=== PATIENT | female | born 2000 | race Caucasian/White ===

== ENCOUNTER 2025-05-04 07:04 | Outpatient (CLI) | payer OTHER, SELFPAY | END 2025-05-04 07:05 | disposition home or self-care (01) | PROVIDERS: Visit Provider Obstetrics & Gynecology | DX: O10.912 Unspecified pre-existing hypertension complicating pregnancy, second trimester (principal); O99.212 Obesity complicating pregnancy, second trimester; Z3A.20 20 weeks gestation of pregnancy | CPT/HCPCS: 76811 ==

== ENCOUNTER 2025-06-29 09:00 | Outpatient (CLI) | payer OTHER, SELFPAY ==
--- NOTE | 2025-06-29 09:15 | CRLHL7_ITS ---
For Patients: As a result of the Century Cures Act, medical imaging exams and procedure reports are released immediately into your electronic medical record. You may view this report before your referring provider. If you have questions, please contact your health care provider. OB ULTRASOUND FOLLOW-UP/LIMITED, 06/29/2025 CLINICAL HISTORY: Obesity complicating . COMPARISON: 05/04/2025. TECHNIQUE: Real time lester scale imaging of the fetus was performed. Transabdominal imaging performed. FINDINGS: ANI by US: 09/21/2025. GA: 28 weeks 0 days. Gestation: Single. Cervix: Not visualized. Positioning: Vertex. Amniotic Fluid: 7.7 cm SDP. Placenta: Technique: TA. Placenta Position: Anterior. Dopplers: Heart Rate: 134 bpm. BIOMETRY BPD: 7.2 cm, 29 weeks 0 days. 70% HC: 26.2 cm, 28 weeks 4 days. 36% AC: 24.1 cm, 28 weeks 3 days. 55% FL: 5.1 cm, 27 weeks 3 days. 18% FL/AC Ratio: 21.18% HC/AC Ratio: 1.09. EFW: 1175 grams, 2 lb 9 oz. Age by this US: 28 weeks 3 days. ANI by this US: 09/18/2025. Percentile by ANI: 41% IMPRESSION: 1. Sonographic gestational age 28 weeks 3 days and sonographic due date 09/18/2025. Good correlation with dates. Normal interval growth. 2. Estimated weight 41st percentile. Abdominal circumference 55th percentile. Shashank Gardiner M.D. Diagnostic Radiologist [email or web address] Transcribed: 10:46 am DW/Dictated by: Shashank Gardiner MD @ 06/29/2025 10:11:00 AM (Electronically Signed)
== END 2025-06-29 09:01 | disposition home or self-care (01) ==
LOC: US 09:01
PROVIDERS: Visit Provider Obstetrics & Gynecology
DX: O99.213 Obesity complicating pregnancy, third trimester (principal); Z3A.28 28 weeks gestation of pregnancy
CPT/HCPCS: 76816

== ENCOUNTER 2025-06-29 10:16 | Outpatient (CLI) | payer OTHER, SELFPAY | END 2025-06-29 10:17 | disposition home or self-care (01) | LOC: NFLDREF 10:17 | PROVIDERS: Visit Provider Obstetrics & Gynecology | DX: Z34.03 Encounter for supervision of normal first pregnancy, third trimester (principal); R74.8 Abnormal levels of other serum enzymes | CPT/HCPCS: 84450; 84460; 86592 ==

== ENCOUNTER 2025-07-28 07:11 | Outpatient (CLI) | payer OTHER, SELFPAY ==
--- NOTE | 2025-07-28 07:15 | CRLHL7_ITS ---
For Patients: As a result of the Cures Act, medical imaging exams and procedure reports are released immediately into your electronic medical record. You may view this report before your referring provider. If you have questions, please contact your health care provider. OB ULTRASOUND ANI by US: 09/21/2025. GA: 32 w, 1 d. Single. Comparison: 06/29/2025, 05/04/2025. INDICATION: Obesity. TECHNIQUE: Real time lester scale imaging of the fetus was performed. Transabdominal imaging performed. CERVIX: Not visualized. POSITIONING: Transverse, maternal left. AMNIOTIC FLUID: 5.6 cm SDP (N: greater than 2 x 1 cm) BIOPHYSICAL PROFILE: Gross body movements: 2. tone: 2. Respiratory activity: 2. Amniotic fluid: 2. SDP (N: greater than 2 x 1 cm). Total score: 8. PLACENTA: Technique: Transabdominal. PLACENTA POSITION: Anterior. DOPPLER: heart rate: 141 bpm. BIOMETRY: BPD: 8.1 cm. 32 w, 3 d, 52%. HC: 30 cm. 33 w, 2 d, 42%. AC: 27 cm. 31 w, 1 d, 21%. FL: 6 cm. 31 w, 1 d, 15%. FL/AC ratio: 22.15%. HC/AC ratio: 1.11. EFW: 1773 g. Weight: 3 lbs, 15 oz. age by this US: 32 w, 0 d. ANI by this US: 09/22/2025. Percentile by ANI: 20%. IMPRESSION: 1. Normal biophysical profile score 8/8. 2. Sonographic gestational age 32 weeks 0 days with sonographic due date 09/22/2025. Good correlation with dates. Normal interval growth. 3. Estimated weight 20th percentile. Abdominal circumference 21st percentile. Shashank Gardiner M.D. Diagnostic Radiologist [email or web address] DONNA/quinton alcantara/Dictated by: Shashank Gardiner MD @ 07/28/2025 1:00:00 PM (Electronically Signed)
== END 2025-07-28 07:12 | disposition home or self-care (01) ==
LOC: US 07:12
PROVIDERS: Visit Provider Obstetrics & Gynecology
DX: O99.213 Obesity complicating pregnancy, third trimester (principal); Z3A.32 32 weeks gestation of pregnancy
CPT/HCPCS: 76816; 76819

== ENCOUNTER 2025-07-28 08:10 | Outpatient (CLI) | payer OTHER, SELFPAY | END 2025-07-28 08:11 | disposition home or self-care (01) | PROVIDERS: Visit Provider Obstetrics & Gynecology | DX: O10.913 Unspecified pre-existing hypertension complicating pregnancy, third trimester (principal); O24.419 Gestational diabetes mellitus in pregnancy, unspecified control; Z3A.32 32 weeks gestation of pregnancy | CPT/HCPCS: 82565; 82570; 84156; 84450; 84460 ==

== ENCOUNTER 2025-08-01 07:15 | Outpatient (CLI) | payer OTHER, SELFPAY | END 2025-08-01 07:16 | disposition home or self-care (01) | LOC: NFLDREF 08-02 06:10 | PROVIDERS: Visit Provider Obstetrics & Gynecology | DX: R74.8 Abnormal levels of other serum enzymes (principal); O10.913 Unspecified pre-existing hypertension complicating pregnancy, third trimester | CPT/HCPCS: 82570; 84156 ==

== ENCOUNTER 2025-08-02 14:01 | Outpatient (CLI) | payer OTHER, SELFPAY | END 2025-08-02 14:02 | disposition home or self-care (01) | LOC: NFLDREF 08-04 08:54 | PROVIDERS: Visit Provider Obstetrics & Gynecology | DX: R74.8 Abnormal levels of other serum enzymes (principal); O10.913 Unspecified pre-existing hypertension complicating pregnancy, third trimester | CPT/HCPCS: 82565; 84450; 84460 ==

== ENCOUNTER 2025-08-08 12:06 | Outpatient (CLI) | payer OTHER, SELFPAY ==
--- NOTE | 2025-08-08 12:15 | CRLHL7_ITS ---
For Patients: As a result of the Century Cures Act, medical imaging exams and procedure reports are released immediately into your electronic medical record. You may view this report before your referring provider. If you have questions, please contact your health care provider. ANI by US: 09/21/2025. GA: 33w, 5d. Single. COMPARISONS: 07/26/2025, 06/29/2025, 05/04/2025. INDICATION: Obesity. CERVIX: Not visualized. POSITIONING: Transverse right. AMNIOTIC FLUID: 6.9 cm SDP. BIOPHYSICAL PROFILE: Total score: 8. Gross body movements: 2. tone: 2. Respiratory activity: 2. Amniotic fluid: 2. (SDP N: Increase 2 x 1 cm) PLACENTA: Technique: Transabdominal. PLACENTA POSITION: Anterior. DOPPLER: heart rate: 134 bpm. IMPRESSION: Normal biophysical profile 06/10. Shashank Gardiner M.D. Diagnostic Radiologist [email or web address] bM/Dictated by: Shashank Gardiner MD @ 08/08/2025 8:31:00 PM (Electronically Signed)
== END 2025-08-08 12:07 | disposition home or self-care (01) ==
LOC: US 12:07
PROVIDERS: Visit Provider Obstetrics & Gynecology
DX: O99.213 Obesity complicating pregnancy, third trimester (principal); Z3A.33 33 weeks gestation of pregnancy
CPT/HCPCS: 76819

== ENCOUNTER 2025-08-08 13:45 | Outpatient (CLI) | payer OTHER, SELFPAY | END 2025-08-08 13:46 | disposition home or self-care (01) | PROVIDERS: Visit Provider Obstetrics & Gynecology | DX: O10.913 Unspecified pre-existing hypertension complicating pregnancy, third trimester (principal); O24.419 Gestational diabetes mellitus in pregnancy, unspecified control; Z3A.33 33 weeks gestation of pregnancy | CPT/HCPCS: 82565; 82570; 84156; 84450; 84460 ==

== ENCOUNTER 2025-08-12 09:10 | Outpatient (CLI) | payer OTHER, SELFPAY ==
[2025-08-13 13:45] LABS: Strep B DNA Probe Negative (Negative)
[2025-08-13 13:52] LABS: Strep B Susceptibility Needed? No
== END 2025-08-12 09:11 | disposition home or self-care (01) ==
LOC: NFLDREF 10:48
PROVIDERS: Obstetrics & Gynecology; Visit Provider Obstetrics & Gynecology
DX: O10.913 Unspecified pre-existing hypertension complicating pregnancy, third trimester (principal); O24.419 Gestational diabetes mellitus in pregnancy, unspecified control; Z3A.34 34 weeks gestation of pregnancy
CPT/HCPCS: 82565; 82570; 84156; 84450; 84460; 87081; 87653

== ENCOUNTER 2025-08-12 09:16 | Outpatient (CLI) | payer OTHER, SELFPAY ==
--- NOTE | 2025-08-12 09:15 | CRLHL7_ITS ---
For Patients: As a result of the Cures Act, medical imaging exams and procedure reports are released immediately into your electronic medical record. You may view this report before your referring provider. If you have questions, please contact your health care provider. OB ULTRASOUND ANI by US: 09/21/2025. GA: 34 w, 2 d. Single. Comparison: 08/08/2025, 07/28/2025, 06/29/2025. INDICATION: Obesity. TECHNIQUE: Real time grayscale imaging of the fetus was performed. Transabdominal. CERVIX: Not visualized. POSITIONING: Breech. AMNIOTIC FLUID: 6.1 cm. SDP (N: greater than 2 x 1 cm) BIOPHYSICAL PROFILE: 2: Gross body movements 2: tone 2: Respiratory activity 2: Amniotic fluid SDP (N: greater than 2 x 1 cm) 8/8: Total score PLACENTA: Technique: Transabdominal. PLACENTA POSITION: Anterior. DOPPLER: heart rate: 137 bpm. IMPRESSION: Normal biophysical profile score 8/8. Shashank Gardiner M.D. Diagnostic Radiologist [email or web address] DONNA/quinton alcantara/Dictated by: Shashank Gardiner MD @ 08/12/2025 10:14:00 AM (Electronically Signed)
== END 2025-08-12 09:17 | disposition home or self-care (01) ==
LOC: US 09:17
PROVIDERS: Visit Provider Obstetrics & Gynecology
DX: O99.213 Obesity complicating pregnancy, third trimester (principal); Z3A.34 34 weeks gestation of pregnancy
CPT/HCPCS: 76819

== ENCOUNTER 2025-08-15 13:38 | Outpatient (CLI) | payer OTHER, SELFPAY | END 2025-08-15 13:39 | disposition home or self-care (01) | LOC: NFLDREF 08-18 08:27 | PROVIDERS: Visit Provider Obstetrics & Gynecology | DX: O10.913 Unspecified pre-existing hypertension complicating pregnancy, third trimester (principal); O24.419 Gestational diabetes mellitus in pregnancy, unspecified control | CPT/HCPCS: 82565; 82570; 84156; 84450; 84460 ==

== ENCOUNTER 2025-08-15 15:13 | Outpatient (CLI) | payer OTHER, SELFPAY ==
--- NOTE | 2025-08-15 15:00 | CRLHL7_ITS ---
For Patients: As a result of the Cures Act, medical imaging exams and procedure reports are released immediately into your electronic medical record. You may view this report before your referring provider. If you have questions, please contact your health care provider. OB ULTRASOUND BIOPHYSICAL PROFILE ANI by US: 09/21/2025. GA: 34 w, 5 d. Single. Comparison: 08/12/2025, 08/08/2025, 07/28/2025. INDICATION: Non reactive NST. TECHNIQUE: Real time lester scale imaging of the fetus was performed. Transabdominal. CERVIX: Not visualized. POSITIONING: Transverse. AMNIOTIC FLUID: 5.2 cm. SDP (N: greater than 2 x 1 cm) BIOPHYSICAL PROFILE: Total score: 2. Gross body movements: 2. tone: 2. Respiratory activity: 2. Amniotic fluid: 2. (SDP N: greater than 2 x 1 cm) Total: 06/10. PLACENTA: Technique: Transabdominal. PLACENTA POSITION: Anterior. DOPPLER: heart rate: 145 bpm. IMPRESSION: Normal biophysical profile 06/10. Shashank Gardiner M.D. Diagnostic Radiologist [email or web address] DONNA/fadi JR/Dictated by: Shashank Gardiner MD @ 08/16/2025 8:31:00 AM (Electronically Signed)
== END 2025-08-15 15:14 | disposition home or self-care (01) ==
LOC: US 15:13
PROVIDERS: Visit Provider Obstetrics & Gynecology
DX: O28.8 Other abnormal findings on antenatal screening of mother (principal); Z3A.34 34 weeks gestation of pregnancy
CPT/HCPCS: 76819

== ENCOUNTER 2025-08-18 08:58 | Outpatient (CLI) | payer OTHER, SELFPAY | END 2025-08-18 08:59 | disposition home or self-care (01) | LOC: NFLDREF 08-20 11:54 | PROVIDERS: Visit Provider Obstetrics & Gynecology | DX: O10.919 Unspecified pre-existing hypertension complicating pregnancy, unspecified trimester (principal); R74.8 Abnormal levels of other serum enzymes | CPT/HCPCS: 82565; 82570; 84156; 84450; 84460 ==

== ENCOUNTER 2025-08-18 09:03 | Outpatient (CLI) | payer OTHER, SELFPAY ==
--- NOTE | 2025-08-18 09:15 | CRLHL7_ITS ---
For Patients: As a result of the Century Cures Act, medical imaging exams and procedure reports are released immediately into your electronic medical record. You may view this report before your referring provider. If you have questions, please contact your health care provider. Indication: obesity ANI: 09/21/2025 Technique: Real-time sonographic images of the pelvis were obtained transabdominally using grayscale, color, and Doppler imaging. Comparison: 08/15/2025. Findings: A single intrauterine is present in cephalic position. Cardiac activity in the fetus is demonstrated at 154 BPM. Placenta: Anterior. No previa or abruption. Amniotic Fluid: Single deepest pocket measures 5.0 centimeter. Biophysical profile: Breathin/2 Movement: 2/2 Tone: 2/2 Fluid volume: 2/2 Total: 06/10 Impression: 1. Single living intrauterine gestation in cephalic presentation, with heartrate 154 BPM. 2. Anterior placenta without previa or abruption. 3. Single deepest pocket measures 5.0 centimeter. 4. BPP 06/10. Dictated by Iain Siddiqui MD @ 08/21/2025 12:22:19 PM (Electronically Signed)
== END 2025-08-18 09:04 | disposition home or self-care (01) ==
LOC: US 09:03
PROVIDERS: Visit Provider Obstetrics & Gynecology
DX: O24.419 Gestational diabetes mellitus in pregnancy, unspecified control (principal); O10.913 Unspecified pre-existing hypertension complicating pregnancy, third trimester; O99.213 Obesity complicating pregnancy, third trimester; Z3A.35 35 weeks gestation of pregnancy
CPT/HCPCS: 76819

== ENCOUNTER 2025-08-18 15:47 | Inpatient (IN) | payer OTHER, SELFPAY ==
[2025-08-18] VITALS (69 sets, daily range): BP systolic 109–143; BP diastolic 64–93; PULSE 80–229; RESP 16–20; TEMP 36.3–37; O2SAT 80–99; BMI 37.5
[2025-08-18] MEDS: LACTATED RINGERS 1000 ML 1,000 ML 75 ML IV (10:42)
[2025-08-18] MEDS: MAGNESIUM IV 4 GM/100 ML PIGGYBACK IVPB (10:42)
[2025-08-18] MEDS: MAGNESIUM Infusion 40 GM/1,000 ML IV.SOLN IVPB (11:15)
[2025-08-18 15:37] LABS: Hematocrit* 32.4 % (33.0-51.0); Hemoglobin* 10.4 gm/dL (12.0-16.0); Mean Corpuscular HGB Conc 32 gm/dL (32-36); Mean Corpuscular Hemoglobin 28 pg (26-34); Mean Corpuscular Volume 87 fL (80-100); Red Blood Count* 3.73 m/uL (4.00-5.20); White Blood Count* 12.10 K/uL (4.50-11.00)
[2025-08-18 15:44] LABS: Slide Review Reflex No
[2025-08-18 15:59] LABS: Alanine Aminotransferase* 95 U/L (4-35); Aspartate Amino Transferase* 47 U/L (12-35); Blood Urea Nitrogen* 16 mg/dL (5-24); Creatinine* 0.5 mg/dL (0.5-1.5); Est. Creatinine Clearance* 128.66; Estimated Glomerular Filt Rate 133 ml/min
--- NOTE | 2025-08-18 20:13 | P.LDBA_ITS ---
Subjective History of Present Illness Time Seen by Provider: 18:00 Date Seen: 08/18/25 Narrative: Patient is being admitted to Labor and Delivery for medical induction of labor. She is a 25 year old at 35.1 weeks gestation. She was sent to clinic from induction of labor due to diagnosis of superimposed preeclampsia with severe features. Denies labor symptoms or preeclampsia symptoms. Carmita was diagnosed based on ALT twice the upper limit of normal on today's preeclampsia labs. Specific Issues/Plans Transfer at 13 0/7 weeks' gestation from [facility]. BPP/NST form filled out in referrals. Partner: Charles Cervantes: Drawn 03/16/2025: Low risk NIPT, male fetus. Negative carrier screen. # Chronic hypertension, well controlled on medication # Superimposed preE without SF * On labetalol 100 mg b.i.d. and nifedipine ER 120 mg daily --> increased labetalol to 200 mg BID on 08/15/25 * Baby aspirin daily * Level two ultrasound: ordered on 04/14/25 * Growth ultrasound q.4 weeks starting at 28 weeks * Weekly testing starting at 32 weeks: form scanned * Weekly labs starting at 32 weeks * Transaminitis and Elevated UPCR on 07/28 - 0.49 from 0.2 in January [x] Repeat labs 08/01 - stable essentially, AST 45 [x] 24 hour urine: 573.5 mg [x] twice weekly testing form [x] BMZ#1 of 08/15/25 * [x ] 37 week IOL for SI preE - scheduling form/consent on 08/08 # GDM - 1-h glucose screen 191 * Diabetes education/Nutrition counseling * QID BS monitoring * Already scheduled for serial growth US and antepartum testing due to HTN on meds * Referred to February for likely insulin, ok to hold off per February on 08/02 * 08/12: more than 30 % of FBS elevated, recommend nighttime NPH-message sent to scheduling to help coordinate early next week with February * 08/15: BS improved, hold on insulin, education provided, can start insulin when needed # BMI 38 * Weekly testing starting at 37 weeks * Covered from [place] surveillance * Recommend visit with February, >20% values elevated (mostly fastings) on 07/28 # elevated liver enzymes on 01/20/2025 * AST 53, ALT 87. Urine P/C 0.2. * Recheck at 28 weeks: AST 22, ALT 19 on 06/19/25 * 08/02: AST 33, ALT 45 * 08/08: AST 38, ALT 50 * 08/12: AST:36, ALT: 58 # Anemia - Hgb 9.0 on 06/29/25 * oral iron supplement prescribed 06/29/25 * recheck at 34 weeks: 10.2, continue oral iron # Anxiety/depression * Stable on fluoxetine labs 01/20/2025: Blood type: O positive, antibody screen negative Hemoglobin: 12.6 Platelets: 398 Rubella: Immune Varicella: Immune RPR: Nonreactive Hep B sAg: Nonreactive Hep B sAb: [] Hep C Ab: Nonreactive HIV: Nonreactive HbA1c: 5.4 (10/04/2024) Urine culture: < 10,000 c.f.u. GC/Chlamydia: Negative/negative Pap: 10/04/2024 NIL, -HPV Imaging: * 1st trimester: 02/03/2025 7 / weeks, right-sided. Gestational hemorrhage measuring 1.2 x 0.5 x 0.7 cm. Corpus luteal cyst right ovary. ANI 09/21/2025. * Level 2 US: 05/04/25. Jose at 20w5d gestational age. No anomalies commonly detected by ultrasound were identified, however some views were suboptimal, as described above. Growth parameters and estimated weight were consistent with gestational age predicted by assigned ANI. The amniotic fluid volume appeared normal. On transabdominal imaging the cervix appeared long and closed. Follow-up is recommended with [facility] in 3-4 weeks to reassess anatomy that was suboptimally seen today.?Patient declined f/u anatomy scan with M. Following this, recommend monthly assessment of growth starting at 28 weeks in addition to weekly testing starting at 32 weeks due to cHTN on medications. * 06/29/2025: EFW 1175 g (41%), BPD 70%, HC 36%, AC 55%, FL 18%, SDP 7.7 cm, vertex * 07/28: EFW 1773g at 20%ile - BPD 52%, HC 42%, AC 21%, FL 15%. MVP 5.6cm. Transverse, head to mat left. 06/10 BPP. Vaccinations: COVID: doing through work Flu: doing through work Tdap: 07/11/25 RSV: Declined 32 week mental health: No acute concerns - PHQ9 of 6, GAD7 of 1. OB - Problem Based A/P Additional Plan (1) Chronic hypertension with superimposed pre-eclampsia: Status: Acute Plan: [id number] - Based on new onset of transaminitis with ALT twice the upper limit of normal at 88. - BPs 120-140s/70-90s - Symptoms: Denies any persistent headache, vision changes, SOB, right upper quadrant/epigastric pain, or rapidly expanding edema. - Magnesium: On Magnesium for seizure ppx - IV antihypertensives: currently not indicated - PO antihypertensives: Nifedipine 90 mg QD and 30 mg QHS with labetalol 200 mg BID. - Pre-eclampsia labs on 08/18 @ 0845: Plt 273 Cr 0.6 ALT 88 AST 43 - Labs Q6H - UOP: 0.93 cc/kg/hr (2) GDM (gestational diabetes mellitus): Status: Acute Plan: - GDMA1 - Diabetic management per labor protocol (3) Anemia affecting : Status: Acute Plan: 10.4 gm/dL (4) Obesity affecting : Status: Acute (5) , high-risk: Status: Acute Plan: - Plan: admit for IOL due to superimposed preeclampsia with severe features at 35 weeks 1 day - Misoprostol per protocol NST - 140 bpm, moderate varibility, + accelerations, - decelerations - [place]: irritable OB Exam Physical Exam Vital signs: Temp Pulse Resp BP Pulse Ox 98.2 F 86 18 128/71 97 08/18/25 19:34 08/18/25 19:33 08/18/25 19:34 08/18/25 19:33 08/18/25 19:31 Narrative: Physical exam: General: No acute distress Psych: Alert and oriented x4, full affect HEENT: Normocephalic, atraumatic Heart: Regular rate and rhythm, no murmur rub or gallop Lungs: Clear to auscultation bilaterally Abdomen: Gravid, soft, no tenderness, rebound, or guarding Pelvic exam: Ft per RN
[2025-08-18] MEDS: LABETALOL HCL 100 MG TABLET 200 MG PO (21:01)
[2025-08-18] MEDS: FLUOXETINE HCL 10 MG CAPSULE 30 MG PO (21:02)
[2025-08-18 22:34] LABS: Hematocrit* 34.4 % (33.0-51.0); Hemoglobin* 11.0 gm/dL (12.0-16.0); Mean Corpuscular HGB Conc 32 gm/dL (32-36); Mean Corpuscular Hemoglobin 28 pg (26-34); Mean Corpuscular Volume 87 fL (80-100); Red Blood Count* 3.95 m/uL (4.00-5.20); Slide Review Reflex No; White Blood Count* 12.41 K/uL (4.50-11.00)
[2025-08-18 22:55] LABS: Blood Urea Nitrogen* 16 mg/dL (5-24); Creatinine* 0.6 mg/dL (0.5-1.5); Est. Creatinine Clearance* 107.22; Estimated Glomerular Filt Rate 127 ml/min
[2025-08-18 22:56] LABS: Alanine Aminotransferase* 93 U/L (4-35); Aspartate Amino Transferase* 45 U/L (12-35)
[2025-08-18] MEDS: ONDANSETRON 2 MG/ML inj 4 MG IV (23:50)
[2025-08-19] VITALS (29 sets, daily range): BP systolic 107–145; BP diastolic 55–96; PULSE 71–93; RESP 16–18; TEMP 36.4–36.6; O2SAT 93–99
--- NOTE | 2025-08-19 00:18 | P.EN_ITS ---
Chart Event Note Time Seen by Provider: 23:00 Date Seen: 08/19/25 Chart Event Note: Notified by RN that there's concern for malpresentation and heart tones are detected very high from the start of admission. Patient also endorsed big movements and feeling position change. She's s/p misoprostol x 3 doses. Ultrasound history 08/12: Breech 08/15: Transverse 08/18: Vertex Unfortunately, bedside ultrasound showed complete breech position. Carmita and her partner Charles were extensively counseled on her options moving forward. We discussed ECV followed by continue induction versus primary delivery. I discussed with patient that 3-4% of pregnancies are mal presented.? If there is a concern in for malpresentation, we assessed with ultrasound at 36 weeks.? If the fetus continues to be breech at 36 weeks, she has the option of attempting an external cephalic version at 37 weeks.? We discussed the rationale for doing the procedure at 37 weeks (technically feasible, fetus is term should delivery be indicated, and lower risk of reversion). Unfortunately, she is having a delivery due to preeclampsia with severe features. Thus, she has a higher rate of reversion which is very tenuous while we are actively trying to induce labor. Contraindication to external cephalic version is anything that is a contraindication to vaginal delivery such as a placenta previa, multiple previous CD etc. Patient doesn?t have any absolute contraindications. The benefit of an external cephalic version is fewer delivery.? It is important to know that there is no difference for low APGARs, low umbilical vein pH, and when comparing external cephalic version with subsequent vaginal delivery to planned delivery at term. However, this is assuming that she will have a successful vaginal delivery. She has higher risk of needing a for failed induction/labor dystocia due to pre term induction, nulliparous, unfavorable cervix. The risks of external cephalic version: heart rate changes (most common in stabilizes when procedure is discontinued). ?Overall, serious adverse effects are very low, all < 1%.? These include placental abruption, umbilical cord prolapse, rupture of membranes, stillbirth, maternal hemorrhage.? The risk of an emergency delivery is also low. We discussed factors affecting success.? The overall success rate quoted in the literature is 58%.? Factors that her favorable towards a successful external cephalic version are increased parity, transverse or oblique presentation, normal amniotic volume, normal maternal BMI, and posterior placental location. Factors more associated with failure is nulliparity, advanced dilation, weight less than 2500g, anterior placenta, and low station. She is nulliparous with an anterior placenta. It has been awhile since she last had a growth scan but on July 28, EFW was only at the 20th percentile. She will be given terbutaline for tocolysis prior to the procedure.? We discussed that terbutaline has doubled the rate of ECV success.? With regards to anesthesia, neuraxial anesthesia is available to her should she desire. I was jasper with patient that ECV with continued induction of labor is risky given that her fetus has shown to be in variable presentation. If successful, we would have ultrasound her at frequent intervals and during every intervention to reassure ourselves of positioning until fetus is low in the pelvis. We discussed delivery. In general, vaginal delivery has lower risk of maternal morbidity and mortality, fewer short-term complications such as infect ion and thromboembolism, shorter hospital stays, and lower rates of maternal hemorrhage and rehospitalization. Vaginal delivery also result in shorter hospital stay and fast recovery. Again, vaginal delivery is associated with fever complications in subsequent pregnancies such as placenta previa, placenta accreta, and uterine rupture. risks associated with vaginal delivery compared to include higher incidence of trauma, hypoxic ischemic events, and inserted scenarios like breech or very pre term presentations, increased mortality. Conversely, delivery increases the risk of respiratory morbidity such as transient tachypnea, respiratory distress syndrome and NICU admission. While it is reassuring that she has received betamethasone x2, her baby is still at high risk for needing NICU admission due to being 35 weeks 2 days and like higher risk of respiratory morbidity if delivered via . She understands that the four main categories of surgical risk include pain, bleeding, infection, and damage to surrounding structures. Intraoperative pain will be manage with spinal anesthesia or epidural anesthesia. If that those are not effective or not appropriate for the clinical situation, general anesthesia will be administered. Immediately postop, TAP block will be performed. Throughout her recovery course, she will have on PO pain medications such as ibuprofen, Tylenol, and oxycodone. Regarding infection, she understands that we will be delivering appropriate antibiotics, however that the risk of infection following section still is approximately 5-7%. She understands that though the risk is very low that there is always a risk of damage to the bladder, uterus, ovaries, fallopian tubes, bowels, ureters, or even the fetus (0.1-0.3%). She understands that most injuries can be addressed at the time of surgery, however, such an injury may require additional surgeries to fix. She has never had any abdominal surgeries. She understands that a section carries a risk of bleeding (1-5% risk of hemorrhage), and that while this bleeding can be addressed with multiple medical and surgical modalities (including hysterectomy), that there is the possibility of needing a blood transfusion (0.5-3%). She reports she would accept a blood transfusion. She understands that a section does increase risks for future pregnancies and deliveries including, but not limited to, the risk of uterine rupture or placenta accreta. Lastly, VTE after delivery rate is around 0.1-0.4%. Will decrease this risk with SCD use, early ambulation, and thromboprophylaxis medication if needed. We also reviewed postoperative care, recovery, and restrictions. All questions answered to patient's satisfaction and the best of my abilities. After some discussion with her spouse, Carmita has decided to proceed with primary delivery. Consent form signed and will proceed with delivery via section. She will not be NPO until after 3:00 a.m. She is scheduled to delivery that 6 am. SVE: / I will rescan Carmita prior to proceeding to the OR in the AM.
[2025-08-19 03:40] LABS: Hematocrit* 33.8 % (33.0-51.0); Hemoglobin* 11.0 gm/dL (12.0-16.0); Mean Corpuscular HGB Conc 33 gm/dL (32-36); Mean Corpuscular Hemoglobin 28 pg (26-34); Mean Corpuscular Volume 86 fL (80-100); Red Blood Count* 3.92 m/uL (4.00-5.20); White Blood Count* 11.53 K/uL (4.50-11.00)
[2025-08-19 03:45] LABS: Alanine Aminotransferase* 95 U/L (4-35); Aspartate Amino Transferase* 45 U/L (12-35); Blood Urea Nitrogen* 13 mg/dL (5-24); Creatinine* 0.5 mg/dL (0.5-1.5); Est. Creatinine Clearance* 128.66; Estimated Glomerular Filt Rate 133 ml/min
[2025-08-19 03:51] LABS: Slide Review Reflex No
--- NOTE | 2025-08-19 05:53 | P.OBPRC_ITS ---
Procedure Time Seen by Provider: 05:53 Date of procedure: 08/19/25 Procedure Done: Global Will [facility] bill your pro fee for this procedure?: Yes Procedure Description: DELIVERY BY SECTION Date of Service: 08/19/25 Delivery time: 613 Summary: Admitted for induction of labor due to superimposed preeclampsia with severe features at 35.1 weeks, primary lower uterine transverse section, Pfannenstiel, Closed with sutures, QBL 0614 cc, no complications, Findings: Footling breech fetus, Normal uterus, bilateral ovaries and tubes 7/8 weight 2255 g. Beside ultrasound performed prior to proceeding to the OR. Breech presentation confirmed. Primary Indication: 1. Superimposed preeclampsia with severe features 2. Breech presentation Procedures: Primary Lower uterine transverse section Specimens Removed: Placenta Surgeon: Meli Santiago MD Anesthesia: Spinal Report: Prophylactic antibiotic, 2 g of Ancef was given before patient was taken to OR. She continued to be on magnesium sulfate. After arrival to the operating room patient was placed in the supine position with left lateral tilt after administration of spinal anesthesia. She was prepped and draped in the usual sterile manner. Laparotomy A pfannenstiel incision was made through the anterior abdominal wall with #10 scalpel approximately 2 cm above the pubic symphysis. The incision was extended sharply with the #10 scalpel through the subcutaneous tissue to the level of fascia. The fascia was entered sharply with a #10 scalpel (Pfannenstiel) in the midline and extended in semi-elliptical fashion with Bacon scissor. The u nderlying muscles were dissected off the overlying fascia by grasping the superior aspect of fascia with two ariel clamps and blunt dissection was used along the midline. The fascia was further from rectus muscle with Bacon scissor and/or cautery. In similar fashion, the lower aspect of fascia was also grasped with two Ariel clamps and both blunt and sharp dissection was used to separate fascia from rectus muscle. The rectus muscles were in the midline bluntly with digits. The peritoneum was then entered bluntly. The peritoneal incision was then extended superiorly and inferiorly under direct visualization with care being taken to avoid bladder and bowel. No adhesions were noted. The peritoneal incision was enlarged bluntly by lateral traction from the surgeon's and sales assistants and salespersons's hand. Chinedu retractor was inserted into the abdomen. Delivery Bladder flap was not developed as bladder was sufficiently below the lower uterine segment. A low transverse hysterotomy was made then with #10 scalpel and extended laterally and cephalad with fingers in a low transverse fashion with Manu Palmer technique with care being taken to avoid injury to the fetus. The amniotic cavity (membrane) was then entered with spontaneous rupture of membrane, and the amniotic fluid was noted to be clear, fetus was delivered breech. legs were palpated and delivered gradually through the hysterotomy fundal pressure was continue in both legs were extended using the Pinard maneuver. With gentle pressure the legs and body gradually delivered once the scapula could be seen that the baby was gently rotated and both arms were delivered using the loveset maneuver. Maintaining head flexion, head was delivered without difficulty using the Eubdctef-[id number]-[id number] maneuver. With delivery of the baby, no extension was noted. Placenta was delivered spontaneously with steady traction on cord and manual separation of placenta from uterine wall. Closure Uterine cavity was cleaned after placental delivery with lap sponge x 2. The hysterotomy was closed in two layers with stitches using 0 vicryl with continuous locking stitches and 0 monocryl in a continuous non locking manner. Two figure of 8 placed on left lower uterine segment. Hemostasis was achieved as needed with electrocautery. Lisa applied. Excellent hemostasis noted. The ovaries/tubes/uterine surface were evaluated. They were found to be normal. Chinedu retractor removed and hemostasis was confirmed again. Fascia was closed with running stitches using 0 vicryl. Subcutaneous layer was irrigated. Hemostasis was checked for and found to be adequate. The subcutaneous layer was closed with running 2-0 chromic sutures x2. The skin was closed with 4-0 monocryl subcuticular sutures . The incision was cleaned, Exofin applied, and Mepilex dressing placed. The procedure considered terminate at this time. Intraoperative Complications: None QBL: 595 cc Uterotonics/hemostatic agents: 40u of pitocin Disposition: The patient tolerated the procedure well. She was recovered in Obstetric PACU for close monitoring in stable condition, with a contracted uterus and normal transvaginal bleeding. The handed to pediatric team for initial assessment and resuscitation. The placenta was sent to pathology. Debrief with OR team performed and specimen reviewed at the conclusion of the procedure.
[2025-08-19] MEDS: MAGNESIUM Infusion 40 GM/1,000 ML IV.SOLN IVPB (07:15)
--- NOTE | 2025-08-19 07:37 | P.ANES_ITS ---
Anesthesia Charges Start Date/Time Anesthesia Start Date: 08/19/25 Anesthesia Start Time: 05:37 Stop Date/Time Anesthesia Stop Date: 08/19/25 Anesthesia Stop Time: 07:35 Coding CPT Codes CPT Codes: ANESTH CS DELIVERY - 50056 ([id number]) P3 - PATIENT W/SEVERE SYS DISEASE, QZ - PRE SCHOOL TEACHER SVC W/O PAINT LABORATORY TECHNICIAN BY
--- NOTE | 2025-08-19 07:37 | W.ANESCHARGE ---
Anesthesia Charges Start Date/Time Anesthesia Start Date: 08/19/25 Anesthesia Start Time: 05:37 Stop Date/Time Anesthesia Stop Date: 08/19/25 Anesthesia Stop Time: 07:35 Coding CPT Codes CPT Codes: ANESTH CS DELIVERY - 76833 ([id number]) P3 - PATIENT W/SEVERE SYS DISEASE, QZ - OB SCRUB TECH SVC W/O SUPERVISOR AIRCRAFT MAINTENANCE BY
--- NOTE | 2025-08-19 07:38 | P.NB_ITS ---
Nerve Block Nerve Block Time Seen by Provider: 07:15 Date Seen: 08/19/25 Type of block requested by surgeon for post-operative analgesia: TAP Side: bilateral Time out performed: Yes Verification of patient name: Yes Verification of date of : Yes Site marking: site marked Name of person performing procedure: Javier Enriquez Assistants, if any: BRANDY Vizcarra Continuous monitoring Was continuous monitoring of O2 sat, B/P, cardiac rehabilitation specialist, recorded every 15 minutes?: Yes Procedure Checklist: sterile prep, needles and gloves Ultrasound guided. Images saved: Yes Medications given in 5ml increments after negative aspiration: Marcaine %: 0.25 mL: 30 and Exparel mL: 10 Block Charges Block Charge (with Pro Fee): TAP Bilateral Use of Ultrasound Machine for Block: Yes- US Guidance/pain block
[2025-08-19 08:56] LABS: Hematocrit* 28.9 % (33.0-51.0); Hemoglobin* 9.4 gm/dL (12.0-16.0); Mean Corpuscular HGB Conc 33 gm/dL (32-36); Mean Corpuscular Hemoglobin 28 pg (26-34); Mean Corpuscular Volume 86 fL (80-100); Red Blood Count* 3.35 m/uL (4.00-5.20); White Blood Count* 13.91 K/uL (4.50-11.00)
[2025-08-19 08:58] LABS: Slide Review Reflex No
[2025-08-19] MEDS: ACETAMINOPHEN 500 MG TABLET 1000 MG PO ×2 (09:05→17:34)
[2025-08-19] MEDS: DOCUSATE SODIUM 100 MG CAPSULE PO (09:06)
[2025-08-19 09:29] LABS: Alanine Aminotransferase* 80 U/L (4-35); Aspartate Amino Transferase* 43 U/L (12-35); Blood Urea Nitrogen* 13 mg/dL (5-24); Creatinine* 0.5 mg/dL (0.5-1.5); Est. Creatinine Clearance* 128.66; Estimated Glomerular Filt Rate 133 ml/min
[2025-08-19] MEDS: LACTATED RINGERS 1000 ML 1,000 ML 75 ML IV ×2 (13:30)
[2025-08-19 15:56] LABS: Hematocrit* 30.5 % (33.0-51.0); Hemoglobin* 9.9 gm/dL (12.0-16.0); Mean Corpuscular HGB Conc 33 gm/dL (32-36); Mean Corpuscular Hemoglobin 28 pg (26-34); Mean Corpuscular Volume 86 fL (80-100); Red Blood Count* 3.53 m/uL (4.00-5.20); White Blood Count* 11.34 K/uL (4.50-11.00)
[2025-08-19 16:03] LABS: Slide Review Reflex No
[2025-08-19 16:12] LABS: Blood Urea Nitrogen* 16 mg/dL (5-24); Creatinine* 0.7 mg/dL (0.5-1.5); Est. Creatinine Clearance* 91.90; Estimated Glomerular Filt Rate 122 ml/min
[2025-08-19 16:13] LABS: Alanine Aminotransferase* 91 U/L (4-35); Aspartate Amino Transferase* 47 U/L (12-35)
[2025-08-19 21:48] LABS: Hematocrit* 27.3 % (33.0-51.0); Hemoglobin* 8.8 gm/dL (12.0-16.0); Mean Corpuscular HGB Conc 32 gm/dL (32-36); Mean Corpuscular Hemoglobin 28 pg (26-34); Mean Corpuscular Volume 87 fL (80-100); Red Blood Count* 3.14 m/uL (4.00-5.20); White Blood Count* 10.25 K/uL (4.50-11.00)
[2025-08-19 21:54] LABS: Slide Review Reflex No
[2025-08-19 22:12] LABS: Alanine Aminotransferase* 77 U/L (4-35); Aspartate Amino Transferase* 40 U/L (12-35); Blood Urea Nitrogen* 15 mg/dL (5-24); Creatinine* 0.7 mg/dL (0.5-1.5); Est. Creatinine Clearance* 91.90; Estimated Glomerular Filt Rate 122 ml/min
[2025-08-20] VITALS (16 sets, daily range): BP systolic 125–166; BP diastolic 82–100; PULSE 77–92; RESP 14–18; TEMP 36.3–37; O2SAT 98
[2025-08-20] MEDS: LACTATED RINGERS 1000 ML 1,000 ML 75 ML IV (01:11)
[2025-08-20] MEDS: MAGNESIUM Infusion 40 GM/1,000 ML IV.SOLN IVPB (01:49)
[2025-08-20 03:37] LABS: Hematocrit* 31.2 % (33.0-51.0); Hemoglobin* 10.0 gm/dL (12.0-16.0); Mean Corpuscular HGB Conc 32 gm/dL (32-36); Mean Corpuscular Hemoglobin 28 pg (26-34); Mean Corpuscular Volume 88 fL (80-100); Red Blood Count* 3.56 m/uL (4.00-5.20); White Blood Count* 11.72 K/uL (4.50-11.00)
[2025-08-20 04:46] LABS: Alanine Aminotransferase* 85 U/L (4-35); Aspartate Amino Transferase* 45 U/L (12-35); Blood Urea Nitrogen* 10 mg/dL (5-24); Creatinine* 0.6 mg/dL (0.5-1.5); Est. Creatinine Clearance* 107.22; Estimated Glomerular Filt Rate 127 ml/min
[2025-08-20 04:55] LABS: Slide Review Reflex No
[2025-08-20] MEDS: ACETAMINOPHEN 500 MG TABLET 1000 MG PO ×3 (08:04→19:47)
[2025-08-20] MEDS: DOCUSATE SODIUM 100 MG CAPSULE PO (08:04)
[2025-08-20 09:57] LABS: Hematocrit* 27.4 % (33.0-51.0); Hemoglobin* 8.8 gm/dL (12.0-16.0); Mean Corpuscular HGB Conc 32 gm/dL (32-36); Mean Corpuscular Hemoglobin 28 pg (26-34); Mean Corpuscular Volume 88 fL (80-100); Red Blood Count* 3.13 m/uL (4.00-5.20); Slide Review Reflex No; White Blood Count* 9.92 K/uL (4.50-11.00)
[2025-08-20 10:14] LABS: Alanine Aminotransferase* 71 U/L (4-35); Aspartate Amino Transferase* 39 U/L (12-35); Blood Urea Nitrogen* 10 mg/dL (5-24); Creatinine* 0.6 mg/dL (0.5-1.5); Est. Creatinine Clearance* 107.22; Estimated Glomerular Filt Rate 127 ml/min
--- NOTE | 2025-08-20 10:34 | P.OBPN_ITS ---
OB - PN:Subj Subjective Date Seen: 08/20/25 Patient comments OB post-: pain well controlled, tolerating diet and flatus present infant status: transferred Narrative: Carmita is a 25 y.o. who was admitted to [facility] for IOL due to CHTN with superimposed preeclampsia with severe features. ?She had an uncomplicated C- section.?The patient feels well other than a bit sad of not being next to baby. Baby was transferred to NICU, but he is doing good- he was taken of BIPAP and they are working on feedings. ?The pain is well controlled with current medications. ?She has no new complaints. ?She is pumping to stimulate milk production.?Completed 24 hours of magnesium infusion this morning at around 6:15 a.m. Vitals have been stable.? Oral antihypertensive regimen has been changed and currently on nifedipine 30 mg twice a day. Blood pressures have remained mild range elevated. She has remained afebrile.? Has a good appetite, is tolerating a general diet. ?She is voiding without difficulty.? She is passing gas and has not had a bowel movement.? She is ambulating and denies any dizziness.? Has Small amount of rubra lochia. Urinary output has remained normal. No SHEET METAL JOURNEYMAN irritability symptoms such as headaches, vision changes or pain in her upper abdomen. Her last set of labs was completed at 3:30 a.m. that show stable platelets, normal kidney function, stable liver enzymes. OB - PN: Obj Exam Physical Exam: Vital signs: Temp Pulse Resp BP Pulse Ox O2 Del Method 97.9 F 83 16 125/82 98 Room Air 08/20/25 06:13 08/20/25 06:13 08/20/25 06:13 08/20/25 06:13 08/20/25 06:13 08/20/25 06:13 Narrative: GENERAL APPEARANCE:? normal affect, alert, no distress MOOD:? appropriate CHEST:? clear to auscultation HEART:? regular rate and rhythm ABDOMEN:? soft, non-tender the uterine fundus is At Umbilicus, Midline and is appropriate for the stage of recovery. EXTREMITIES:? normal and no edema Incision: Covered by dressing, clean and dry. OB - PN: Obj Data Labs Labs: Laboratory Results - last 24 hr 08/19/25 08/19/25 08/20/25 15:50 21:42 03:31 WBC 11.34 H 10.25 11.72 H RBC 3.53 L 3.14 L 3.56 L Hgb 9.9 L 8.8 L 10.0 L Hct 30.5 L 27.3 L 31.2 L MCV 86 87 88 MCH 28 28 28 MCHC 33 32 32 Plt Count 275 229 251 BUN 16 15 10 Creatinine 0.7 0.7 0.6 Estimated Creat Clear 91.90 91.90 107.22 Estimated GFR 122 122 127 Magnesium 6.1 H* 5.7 H* 5.9 H* AST 47 H 40 H 45 H ALT 91 H 77 H 85 H 08/20/25 09:51 WBC 9.92 RBC 3.13 L Hgb 8.8 L Hct 27.4 L MCV 88 MCH 28 MCHC 32 Plt Count 241 BUN 10 Creatinine 0.6 Estimated Creat Clear 107.22 Estimated GFR 127 Magnesium 3.4 H AST 39 H ALT 71 H OB - PN: A/P Delivery Assessment and Plan (1) Chronic hypertension with superimposed pre-eclampsia: Status: Acute Assessment and Plan: Recommend continued monitoring for at least 24 hours after discontinuing magnesium sulfate infusion. Continue close monitoring of vital signs, low threshold to titrate oral antihypertensive medication regimen to keep tight control of blood pressures at hopefully she is able to be discharged home tomorrow. Plan to repeat pre labs tomorrow morning. Will repeat sooner if there is any concerns for worsening clinical status. (2) GDM (gestational diabetes mellitus): Status: Acute Assessment and Plan: Consider completion of to 2 GTT inpatient, if not at 6 week visit. (3) Anemia affecting : Status: Acute (4) Obesity affecting : Status: Acute (5) , high-risk: Status: Acute Plan day: 1 Plan: routine care Comments: If stable tomorrow am, would consider D/H so that she is able to reunite with baby.
[2025-08-20] MEDS: FLUOXETINE HCL 10 MG CAPSULE 30 MG PO (19:46)
[2025-08-21 00:36] VITALS: BP 142/86; PULSE 97; RESP 16; TEMP 36.8; O2SAT 98
[2025-08-21] MEDS: IBUPROFEN 600 MG TABLET PO ×2 (00:37→08:46)
[2025-08-21] MEDS: ACETAMINOPHEN 500 MG TABLET 1000 MG PO (04:18)
[2025-08-21 04:33] VITALS: BP 132/86; PULSE 74; RESP 14; TEMP 37; O2SAT 98
[2025-08-21 04:34] LABS: Hematocrit* 28.5 % (33.0-51.0); Hemoglobin* 9.1 gm/dL (12.0-16.0); Immature Granulocytes Pct Auto 1.8 %; Mean Corpuscular HGB Conc 32 gm/dL (32-36); Mean Corpuscular Hemoglobin 28 pg (26-34); Mean Corpuscular Volume 87 fL (80-100); RDW Coefficient of Variation % 14.1 % (11.5-15.5); Red Blood Count* 3.27 m/uL (4.00-5.20); White Blood Count* 12.00 K/uL (4.50-11.00)
[2025-08-21 04:45] LABS: Immature Granulocytes Abs Auto 0.20 K/uL (0.00-0.30); Lymphocytes Absolute Auto 2.60 K/uL (0.90-2.90); Slide Review Reflex No
[2025-08-21 04:47] LABS: Alanine Aminotransferase* 55 U/L (4-35); Aspartate Amino Transferase* 28 U/L (12-35); Blood Urea Nitrogen* 8 mg/dL (5-24); Creatinine* 0.6 mg/dL (0.5-1.5); Est. Creatinine Clearance* 107.22; Estimated Glomerular Filt Rate 127 ml/min
[2025-08-21 08:44] VITALS: BP 145/98; PULSE 98; RESP 18; TEMP 36.7; O2SAT 99
[2025-08-21] MEDS: DOCUSATE SODIUM 100 MG CAPSULE PO (08:45)
--- NOTE | 2025-08-21 10:11 | PM.OBDSVD1 ---
DS: Providers Provider Date Seen: 08/21/25 Date of admission: 08/18/25 15:47 Primary care physician: Not a Local Provider Admitting Clinician: Meli Santiago MD Attending Physician on discharge: Meli Santiago MD Date of Discharge: 08/21/25 DS: Diagnosis Discharge Diagnosis (1) Chronic hypertension with superimposed pre-eclampsia: Status: Acute (2) GDM (gestational diabetes mellitus): Status: Acute (3) BMI 38.0-38.9,adult: Status: Acute (4) Elevated liver enzymes: Status: Acute (5) Anxiety and depression: Status: Acute Exam Narrative: Exam Narrative: Physical exam: General: No acute distress Psych: Alert and oriented x4, full affect HEENT: Normocephalic, atraumatic Heart: Regular rate and rhythm, no murmur rub or gallop Lungs: Clear to auscultation bilaterally Abdomen: Normoactive bowel sounds, soft, no tenderness, rebound, or guarding, no masses, no hepatosplenomegaly, no hernias Incision(s): Appropriately tender to palpation. Clean, dry, and intact. No erythema, induration, or abnormal discharge/breakdown Skin: No lesions or rashes Lower extremities: No edema or erythema Pelvic exam: Scant bleeding on pad Const: Vital Signs, click to edit/add: Vital Signs - 24 hr 08/20/25 11:19 08/20/25 15:06 08/20/25 15:07 Temperature 97.7 F 97.4 F L Pulse Rate [Pulse Oximeter] 92 86 Respiratory Rate 18 18 Blood Pressure [Le ft Arm] 133/89 166/100 H 150/97 H Pulse Oximetry 98 98 Oxygen Delivery Me thod Room Air Room Air 08/20/25 15:20 08/20/25 15:35 08/20/25 15:45 Temperature Pulse Rate [Pulse Oximeter] Respiratory Rate Blood Pressure [Le ft Arm] 153/96 H 162/99 H 148/98 H Pulse Oximetry Oxygen Delivery Me thod 08/20/25 15:55 08/20/25 16:30 08/20/25 16:43 Temperature Pulse Rate [Pulse Oximeter] Respiratory Rate Blood Pressure [Le ft Arm] 138/85 147/97 H 138/93 H Pulse Oximetry Oxygen Delivery Me thod 08/20/25 17:35 08/20/25 18:24 08/20/25 19:52 Temperature 98.6 F Pulse Rate [Pulse Oximeter] 86 89 Respiratory Rate 16 14 Blood Pressure [Le ft Arm] 136/84 130/84 137/89 Pulse Oximetry 98 98 Oxygen Delivery Me thod Room Air Room Air 08/21/25 00:36 08/21/25 04:33 08/21/25 08:44 Temperature 98.2 F 98.6 F 98.1 F Pulse Rate [Pulse Oximeter] 97 74 98 Respiratory Rate 16 14 18 Blood Pressure [Le ft Arm] 142/86 H 132/86 145/98 H Pulse Oximetry 98 98 99 Oxygen Delivery Me thod Room Air Room Air Room Air OB - DS: Summary Hospital Course Hospital Course: The patient is a 25 year old G 1 at 35.1 weeks gestation that was admitted to the Center on 08/18/25 for induction of labor due to superimposed preeclampsia with severe features based on transaminitis trace upper limit of normal. She had an uncomplicated delivery due to breech presentation. She delivered a viable male . She is intending to breast and bottle feed. Baby transferred out due to need of NICU care. the patient has done well. Overnight patient had no complaints. Her pain is well controlled on oral pain medications. She is tolerating a regular diet. She has passed flatus and wanting to have BM soon. She is ambulating without difficulty. Lochia is scant. She is urinating without polanco. Patient denies chest pain, SOB, n/v, headache, RUQ pain, vision changes, dizziness. Currently on nifedipine XL 60 mg b.i.d. and labetalol 200 mg b.i.d. BP in 130-140s/80-90s overnight. Pre E labs stable with down trending transaminitis. She is status post 24 hours of magnesium sulfate for seizure prophylaxis . She strongly desires discharge so she can be with her baby. . Strict return precautions reinforced. Peripartum Data Procedures: Procedures Operation Date: 08/19/25 05:30 Actual Procedure Side Surgeon p Primary Section for Breech Presentation Meli Santiago MD Infant Gender: Male Time Spent with Patient Time attestation: Total time spent providing and/or coordinating discharge services: Discharge Plan Discharge Disposition: Home, Self-Care Date of Admission: 08/18/25 15:47 Attending Provider on Discharge: Meli Santiago Primary Care Provider: Provider,Not a Local Condition: Stable Anticipated Discharge Date/Time: 08/21/25 10:05 Discharge Medications: New nifedipine 30 mg Tablet Extended Release 60 mg PO BID@, 30 Days Qty: 30 0RF oxycodone 5 mg Tablet 5 mg PO Q6H PRN (Reason: Pain) 14 Days Qty: 15 0RF Lanolin (HPA) 100 % Cream 1 applic topical Q1H PRNQty: 21 0RF acetaminophen 500 mg Tablet 30 mg PO Q6H PRN (Reason: Pain) Qty: 60 0RF ibuprofen 600 mg Tablet 600 mg PO Q6H PRN (Reason: Pain) 30 Days Qty: 60 0RF Continued fluoxetine 20 mg capsule 20 mg PO QPM fluoxetine 10 mg capsule 10 mg PO QPM docusate sodium [Colace] 100 mg capsule 100 mg PO QDAY Qty: 90 1RF ferrous sulfate 324 mg (65 mg iron) tablet,delayed release (DR/EC) 324 mg PO Q OTHER DAY Qty: 90 1RF labetalol 100 mg tablet 200 mg PO BID Unisom (doxylamine) 25 mg tablet 25 mg PO QHS PRN DHA 200 mg capsule PO omega 6-mlj-kxx-fish oil [Fish Oil] 1,000 (120-180) mg capsule 1 cap PO QDAY promethazine 12.5 mg tablet 6.25 mg PO Q4-6H PRN (Reason: nausea) Qty: 30 1RF Discontinued nifedipine 90 mg tablet extended release 24hr 90 mg PO DAILY nifedipine 30 mg tablet extended release 24hr PO (DME) lancets Misc See Rx Instructions .MEDSUPPLY Qty: 100 3RF Rx Instructions: Test blood sugar 4 times daily. (DME) Test Strips Misc See Rx Instructions .MEDSUPPLY Qty: 100 3RF Rx Instructions: Test blood sugar 4 times daily. (DME) Blood Glucose Meter Misc See Rx Instructions .MEDSUPPLY Qty: 1 0RF Rx Instructions: As directed aspirin 81 mg tablet 81 mg PO QDAY Discharge Orders: Discharge Order (Routine); Ordered 08/21/25 Ordered By: Meli Santiago Patient Education: Bupivacaine Liposome (By injection), (DC) Activity Level: Activity as Tolerated Discharge Diet: Regular Follow Up Appointments: Provider,Not a Local [Primary Care Provider, Family Practice] Forms: MyHealth Info Instructions Discharge Comments: - Follow up in 3-5 days for incision check and blood pressure check in clinic - Follow Up: follow-up at 2 weeks and 6 weeks in clinic
== END 2025-08-21 10:45 | disposition home or self-care (01) | DRG 788 ==
LOC: OB OUT 23:37 → OB 23:37
PROVIDERS: Obstetrics & Gynecology; Admitting Provider Obstetrics & Gynecology; Visit Provider Obstetrics & Gynecology
PROC: 10D00Z1 Extraction of Products of Conception, Low, Open Approach (ICD-10-PCS; CPT 59514; principal; 2025-08-19 05:30)
DX: O14.14 Severe pre-eclampsia complicating childbirth (principal); O32.1XX0 Maternal care for breech presentation, not applicable or unspecified; O10.92 Unspecified pre-existing hypertension complicating childbirth; O24.429 Gestational diabetes mellitus in childbirth, unspecified control; G89.18 Other acute postprocedural pain; O99.02 Anemia complicating childbirth; D64.9 Anemia, unspecified; O99.344 Other mental disorders complicating childbirth; F41.9 Anxiety disorder, unspecified; F32.A Depression, unspecified; O99.214 Obesity complicating childbirth; E66.9 Obesity, unspecified; Z3A.35 35 weeks gestation of pregnancy; Z37.0 Single live birth
CPT/HCPCS: 01961; 36415; 59200; 64488; 76815; 76942; 82565; 83735; 84450; 84460; 84520; 85025; 85027; 86592; 86850; 86900; 86901; 88307; G0463; A4314; A9270; J0665; J0666; J0690; J1885; J2371; J2405; J2590; J3475; J7120

== ENCOUNTER 2025-09-05 09:03 | Outpatient (CLI) | payer OTHER, SELFPAY | END 2025-09-05 09:04 | disposition home or self-care (01) | LOC: NFLDREF 09-08 11:31 | PROVIDERS: Visit Provider Midwife | DX: O24.419 Gestational diabetes mellitus in pregnancy, unspecified control (principal) | CPT/HCPCS: 82947; 82950 ==

== ENCOUNTER 2025-09-05 14:24 | Outpatient (CLI) | payer OTHER, SELFPAY ==
--- NOTE | 2025-09-05 16:11 | W.PM.LAC.MC ---
Consult Note - Mom Date of Visit Date of visit: 09/05/25 Reason for consultation: Assistance Needed and Other (35+1 week ) Visit Code: Visit Patient's Information Phone number: [phone] : 1 Para: 1 Allergies No Known Drug Allergies Allergy (Verified 09/05/25 09:27) Mother's Medical History: Medical History (Updated 08/23/25 @ 00:00 by Background Daemon) History of eating disorder ?Z86.59 - Personal history of other mental and behavioral disorders (ICD-10) Work Plans: return to work Nov 2025 Delivery Information Delivery type: Primary C/S; Labored Gestational Age: 35+1 Gestational Weight For Age: AGA Weight: 2.255 kg Baby's Information Baby's Age at Visit: 17 days Baby's Provider or Clinic: [facility] Jaundice: No Past Experience Past Experience: No Current Frequency of Day Feedings: every 3 hrs day and night Both Breasts: No Suck: varies Latch: 50/50 with or without nipple shield Length of Time: 15-20 min on one side Goals: at least 1 year Pumping Pumping: Yes Quantity Pumped: 2-3 oz/pump every 3 hrs Supplementing EBM Supplement: Yes (fortified to 22 dylon/oz with Neosure) Formula Supplement: No Baby Elimination Number of Wet Diapers a Day: ea feeding Number of BM a Day: lots of poops Breast/Nipple Condition Breast Information: Breasts are symmetrical with rounded lower quadrants, intramammary distance is less than 1.5 inches. No erythema. Nipples are supple, everted prior to feeding. No issues with plugged ducts or mastitis. Breast Shape: Round Engorgement: No Maternal Nipple Condition - Left: Common Nipple Maternal Nipple Condition - Right: Common Nipple Sore Nipples: Yes (Right is slightly sore) Interventions for Sore Nipples: Lansinoh/Nipple Cream Baby Assessment Skin: Normal Tongue/frenulum: Normal/elastic Palate: Average Lips: Relaxed and Symmetrical Jaw Alignment: Symmetrical Mucosa: [place], moist Onsite Observation Pre-Feed weight: 2.524 kg Post-Feed weight: 2.578 kg Milk Transferred (mL): 54 Position: Football Attachment/latch-on achieved: With difficulty (a bit challenging but able to get latched to both breasts in football hold) Suck pattern: Suck burst and normal rest Swallow: Audible, consistent Behavior following feed: Alert, fussy Pre-Nursing Left Nipple: Within Normal Limits Pre-Nursing Right Nipple: Within Normal Limits Post-Nursing Left Nipple: Within Normal Limits Post-Nursing Right Nipple: Creased/Beveled (slight) Assessments/Interventions Assessments/Interventions: Met with mom, dad and baby Myke who was born at 35+1 weeks gestation via an unplanned delivery. He is now 37+4 corrected age. Baby feeds every 3 hours, breastfeeds ea feeding on one breast for 10-20 minutes, then mom pumps and dad gives a supplement bottle of EBM fortified with neosure to 22 dylon/oz. Mom pumps from 2-3 oz after . Her RIGHT nipple is still slightly sore. She has a zomee pump and is getting a Mom Cozy pump that should arrive tomorrow. Baby has gained 72 gms in 3 days. He latches without a nipple shield about 50% of the time. Mom's goal is to fully breastfeed. Mom latched baby to her RIGHT side and he had a wide latch after multiple attempts. He nursed for 10 minutes with rhythmic suckling and audible swallows. He transferred 32 ml of milk. Mom switched him to her LEFT side and again he had a wide latch and mom was comfortable. He nursed 11 minutes before getting more sleepy and less swallows were audible. He transferred 22 ml of milk. Total milk transferred: 54 ml He then took 30 ml of EBM fortified with Neosure in 10ml increments. He was then content. Parents are comfortable with this triple feeding plan for the time being. Disucssed continuuing to track feedings and supplement amounts prior to appt on ; if his weight gain is good with more , then may be able to alter the feeding schedule to a few bottles ea day with fortified EBM vs with every feeding if he is able to latch more deeply and transfer more milk from the breast. Also discussed his status that there can be a large variation from one feeding to the next so his overall growth pattern needs to be followed. Education provided: Early feeding cues to maximize timing of latching, Asymmetric latch technique for wide/deep latch to increase milk, Transfer for baby and increase comfort for mom, Supply/demand nature of milk supply, Sore nipple treatment options, Alternative feeding methods (SNS, cup, finger feeding, bottling) and Pumping for milk management Feeding Plan: Breastfeed for 10 on each breast, listening for active swallowing; offering both breasts may get him more milk from the breast vs one breast for a longer time. Pump both breasts for: 20 minutes after each feeding; a full 20 minutes if pumping instead of Feed baby pumped milk after ea BFing to meet his hunger cues Use a syringe/feeding tube, cup, or bottle for feedings based on preference Rest, and repeat every 2-3 hours, watch for early feeding cues Try skin to skin to increase milk production F/U as needed for repeat visit as he nears his due date. Follow-Up Suggested follow up: Appointment as needed Recommend baby be seen by provider for:: weight check and circumcision on 09/08/25 Time Spent Time spent with patient (min): 75 Meds Home Medications and Allergies Home Medications ?Medication ?Instructions ?Recorded ?Confirmed ?Type fluoxetine 10 mg capsule 10 mg PO QPM 03/03/24 09/05/25 History fluoxetine 20 mg capsule 20 mg PO QPM 03/03/24 09/05/25 History docosahexaenoic acid 200 mg mg PO 03/16/25 09/05/25 History capsule ( DHA) omega 3-gcz-bwi-fish oil 1,000 mg 1 cap PO QDAY 03/16/25 09/05/25 History (120 mg-180 mg) capsule (Fish Oil) docusate sodium 100 mg capsule 100 mg PO QDAY #90 caps 06/29/25 09/05/25 Rx (Colace) ferrous sulfate 324 mg (65 mg 324 mg PO Q OTHER DAY #90 tabs 06/29/25 09/05/25 Rx iron) tablet,delayed release acetaminophen 500 mg tablet 30 mg (0.06 x 500 mg) PO Q6H PRN 08/21/25 09/05/25 Rx Pain #60 tabs ibuprofen 600 mg tablet 600 mg PO Q6H PRN Pain 30 days #60 08/21/25 09/05/25 Rx tabs nifedipine 30 mg tablet,extended 60 mg (2 x 30 mg) PO BID@07,19 08/26/25 09/05/25 Rx release #120 tabs labetalol 100 mg tablet 100 mg PO BID 09/05/25 09/05/25 History Allergies Allergy/AdvReac Type Severity Reaction Status Date / Time No Known Drug Allergies Allergy Verified 09/05/25 09:27
== END 2025-09-05 14:25 | disposition home or self-care (01) ==
LOC: OB LAC 14:25
PROVIDERS: PCP Family Medicine; Visit Provider Obstetrics & Gynecology
DX: Z39.1 Encounter for care and examination of lactating mother (principal)
CPT/HCPCS: G0463